=== PATIENT | female | born 1980 | race Caucasian/White ===

== ENCOUNTER → 2016-10-07 | Day surgery (SDC) | payer OTHER ==
[~2016-10-07] VITALS: Ht 160 cm; Wt 129.3 kg
[~2016-10-07] MED LIST: ALBUTEROL0.09 MG/A2 IH; ANAPROX DS550 MG PO; CLARITIN10 MG PO; COMPAZINE10 MG PO; DAYPRO600 M1 PO; DIFLUCAN150 MG PO; DOXYCYCLINE100 M3 PO; FIORICET 325 MG1 TAB PO; LEVOTHYROXIN0.025 MG PO; NKHM; OVRAL-21 50 MCG1 TAB PO; PREDNICOT10 MG PO; PREDNISONE10 MG; PRENATAL1 TA1 PO; PROVERA5 MG PO; ROBITUSSIN AC 110 ML PO; ROBITUSSIN DM120 ML PO; TRIMOX500 MG PO; VIBRAMYCIN100 MG PO; ZITHROMAX Z PA250 MG PO
--- NOTE | ~2016-10-07 | WRIGHTHP ---
[place], [place] PATIENT HISTORY AND PHYSICAL EXAM NAME: [id number] UNIT #: [id number] ROOM: DOCTOR: ABHINAV ALEXANDER MD BIRTHDATE: [birth year] DOS: 10/07/2016 DATE OF SURGERY: 10/07/2016 HISTORY OF PRESENT ILLNESS: This patient is a 36-year-old white female who is a 1, para 1, whose last menstrual period is difficult to ascertain due to the fact that she is on Depo-Provera. The patient had come to the office actually on 02/12/2016 and we talked about the tubal ligation because she did not go through again as her first and had premature rupture of membrane at 25 weeks, but her son is doing amazingly well for such a rough start. She just did not want to even take this chance of going through this again. So, we did talk about the tubal, but she opted for the Depo-Provera until recently when she contacted the office and said that she would like to proceed with a tubal ligation. The patient has had the risks and benefits, indications, potential complications, and alternatives reviewed, understanding stated and consent has been signed for either tubal banding or bilateral salpingectomy. She also understands that there may be some surgical limitations to this salpingectomy based on her BMI of 53.55, i.e., 312 pounds and 5 feet 4 inch height. PAST MEDICAL HISTORY: Otherwise reveals the fact that the patient has no known allergies. She takes omeprazole 40 mg daily for reflux, Synthroid 25 mcg daily for hypothyroidism. SOCIAL HISTORY: She does not smoke or drink. PAST SURGICAL HISTORY: She has had a D and C in the past as well as a for delivery of her one and only child. FAMILY HISTORY: Reveals a father with heart disease. Mother with thyroid disease. Maternal grandfather with gastric CA. REVIEW OF SYSTEMS: The patient's review of systems stable. PHYSICAL EXAMINATION: GENERAL: Reveals a pleasant white female. She is 5 feet 4 inches, 312 pounds, BMI is 53.55. VITAL SIGNS: Blood pressure 120/78 and she is in no apparent distress. HEENT: Stable. NECK: Stable. LUNGS: Stable. BREAST: Stable. ABDOMEN: Consistent with BMI. EXTREMITIES: Grossly intact. NEUROLOGIC: Grossly intact. GENITOURINARY: External genitalia, vagina, cervix normal. Pap smear completed in 02/2016 was negative. The uterus itself to the best of my ability to perform the exam based on the BMI was anteverted and anteflexed, otherwise normal in size and configuration, nontender, mobile. Adnexa were not palpable. RECTAL: Deferred. [place], [place] PATIENT HISTORY AND PHYSICAL EXAM NAME: MARY QUIROZ UNIT #: [id number] ROOM: DOCTOR: ABHINAV ALEXANDER MD BIRTHDATE: [birth year] ASSESSMENT: 1. The patient desires fertility termination. 2. Significant increase in BMI. PLAN: On 10/07/2016, will undergo either a laparoscopic bilateral tubal banding or bilateral salpingectomy. ABHINAV ALEXANDER MD CM:HISPHYS:PATIENT HISTORY AND PHYSICAL EXAMINATION [id number] ABHINAV ALEXANDER MD 10/03/16 1040 interface
== END | disposition home or self-care (01) ==
LOC: SDC 10-03 09:30
DX: Z30.2 Encounter for sterilization (principal); Z53.8 Procedure and treatment not carried out for other reasons

== ENCOUNTER → 2023-04-16 | Outpatient (CLI) | payer OTHER | END | disposition home or self-care (01) | LOC: MAMMO 02-04 13:00 → US 02-04 13:30 → MAMMO 02-25 13:00 → US 02-25 13:00 → MAMMO 09:54 | PROVIDERS: ATTEND Nurse Practitioner Women's Health | DX: N63.24 Unspecified lump in the left breast, lower inner quadrant (principal) ==